=== PATIENT | male | born 1985 | race African-American/Black ===

== ENCOUNTER → 2016-08-28 | Outpatient (CLI) | payer OTHER ==
[~2016-08-28] MED LIST: ADVIL200 MG PO; BONE MEAL PO; NORCO 5/3251 TABLET PO; VITA PO; VITAMIN D31000 UNIT PO; ZESTRIL10 MG PO; ZOFRAN4 MG PO
== END | disposition home or self-care (01) ==
LOC: CDC 08:36
DX: R94.31 Abnormal electrocardiogram [ECG] [EKG] (principal); S62.622A Displaced fracture of middle phalanx of right middle finger, initial encounter for closed fracture; M79.644 Pain in right finger(s)
CPT/HCPCS: 93000